=== PATIENT | male | born 1985 | race African-American/Black ===

== ENCOUNTER 2021-12-21 15:26 | Emergency (ER) | payer OTHER ==
[2021-12-21] MEDS ORDERED: Ketorolac Tromethamine 30 MG/ML VIAL ONE (16:07)
[2021-12-21 16:19] LABS: Bilirubin Neg (Negative); Blood, Urine Negative (Negative); Clarity Clear (Clear); Glucose, Urine (Dipstick) Normal (Negative); Ketone, Urine Negative (Negative); Leukocyte Negative (Negative); Nitrite Negative (Negative); Protein, Urine (Dipstick) Negative (Neg-Trace); Specific Gravity, Urine 1.015 (1.002-1.036)
== END 2021-12-21 17:18 | disposition home or self-care (01) ==
LOC: CSHERS 15:26
DX: R10.30 Lower abdominal pain, unspecified (principal); I10 Essential (primary) hypertension; M51.37 Other intervertebral disc degeneration, lumbosacral region
CPT/HCPCS: 72100; 76870; 81003; 93976; 96372; J1885